=== PATIENT | female | born 1960 | race Caucasian/White ===

== ENCOUNTER 2022-04-24 07:30 | Day surgery (SDC) | payer OTHER ==
[2022-04-22 15:59] LABS: SARS-CoV-2 Antigen Rapid Res Negative (Negative)
--- NOTE | 2022-04-22 16:17 | RAD REPORT ---
EXAM DESCRIPTION: Polina Loza And Emilia (2 Views)04/22/2022 3:16 pm CLINICAL HISTORY: Preop for mass removal from COMPARISON: None FINDINGS: The lungs appear clear of acute infiltrate. The heart is normal size. Neurostimulator dev ice in place IMPRESSION: No acute abnormalities displayed
--- NOTE | 2022-04-23 15:40 | EKG ---
Test Date: 2022-04-22 Test Time: 15:00:53 Bus Starter: MEASUREMENT RESULTS: Intervals: Rate: 71 CT: 118 QRSD: 118 QT: 424 QTc: 460 [place]: P: 33 CT: 118 QRS: 63 T: 66 INTERPRETIVE STATEMENTS: Normal sinus rhythm Incomplete right bundle branch block Borderline ECG No previous ECG available for comparison Electronically Signed On 04-23-22 15:38:39 CDT by Terry Velásquez
[2022-04-24] MEDS ORDERED: NA CHLORIDE 0.9% 50 ML ONE (07:55)
[2022-04-24] MEDS ORDERED: CEFAZOLIN SODIUM 1 GM/VIAL ONE (07:55)
[2022-04-24] MEDS ORDERED: Ringers Lactate 1,000 ML IV ONE (07:56)
[2022-04-24] MEDS ORDERED: LIDOCAINE 1% MPF 5 ML VIAL ONE (09:11)
[2022-04-24] MEDS ORDERED: FENTANYL CITR 100 MCG/2 ML ONE ×2 (09:11→09:58)
[2022-04-24] MEDS ORDERED: MIDAZOLAM HCL 2 MG/2 ML INJ ONE (09:11)
[2022-04-24] MEDS ORDERED: dexAMETHasone 10 MG/ML VIAL ONE (09:11)
[2022-04-24] MEDS ORDERED: propofoL 200 MG/20 ML VIAL IV ONE (09:11)
[2022-04-24] MEDS ORDERED: ONDANSETRON 4 MG/2 ML VIAL ONE (09:12)
[2022-04-24] MEDS ORDERED: BUPIVACAINE 0.5% PF 10 ML VIAL SQ ONE (09:25)
[2022-04-24] MEDS ORDERED: BUPIVACAINE 0.5% PF 10 ML VIAL ONE (09:37)
[2022-04-24] MEDS ORDERED: KETOROLAC 30 MG/ML INJ ONE (10:02)
[2022-04-24] MEDS ORDERED: HYDROCODONE/APAP 7.5/325 MG TAB PO PRN (10:08)
--- NOTE | 2022-04-24 10:11 | P.OP ---
Date of Service: 04/24/22 Preop diagnosis: Back mass Postop diagnosis: Same Procedure performed: Wide excision back mass 5 x 3 cm with layered closure Surgeon: Saji Lockett MD Octave Board Assembler: None Estimated blood loss: Minimal Specimen: Back mass Findings: Likely sebaceous cyst Anesthesia:General Complications: None Drains: None Fluids and blood products: Nonapplicable Disposition: Recovery room Operative note: Patient brought to the OR and placed in the supine position. General anesthesia begun. Patient placed in the left lateral position. Patient prepped and draped in the usual sterile fashion. Marcaine 0.5% infiltrated locally for postop pain control. 15 blade used to make a 5 x 3 cm incision surrounding this cyst which appeared to be inflamed. Subcutaneous tissue divided. Entire cyst excised down through the deep subcutaneous tissue. Wound irrigated and bleeding controlled cautery. Flaps created. 2-0 chromic used to reapproximate subcutaneous tissue. 4-0 nylon used to close skin. Sterile dressing applied. Patient awakened taken to recovery room in good general condition. CC: Dr. Rios's office
[2022-04-24] MEDS: MEPERIDINE HCL 25 MG/ML SYR ONE ×2 (10:37→10:42)
[2022-04-24] MEDS ORDERED: HYDROCODONE/APAP 7.5/325 MG TAB ONE (11:31)
[2022-04-24 11:42] VITALS: BP 97/68; TEMP 96.9; O2SAT 98
== END 2022-04-24 11:39 | disposition home or self-care (01) ==
LOC: EDSEX 07:30 → OR 07:30
PROVIDERS: ATTEND Surgery
PROC: 0JB70ZZ Excision of Back Subcutaneous Tissue and Fascia, Open Approach (ICD-10-PCS; principal; 2022-04-24 09:00)
DX: L72.0 Epidermal cyst (principal); Z20.822 Contact with and (suspected) exposure to COVID-19
CPT/HCPCS: 93005; 36415; 88304; 71046; 87811; 11404; J2704; J2001; J2250; J3010 ×2; J1100; J2175; J7120; J2405; J0690

== ENCOUNTER 2024-06-23 08:58 | Day surgery (SDC) | payer OTHER ==
[2024-06-23 09:01] LABS: Absolute Basophils 0.2 K/uL (0-0.5); Absolute Eosinophils 0.5 K/uL (0-0.5); Absolute Lymphocytes (CBC) 2.1 K/uL (0.7-4.9); Absolute Monocytes 1.2 K/uL (0.1-1.3); Absolute Neutrophil 6.2 K/uL (1.8-8.0); Basophils % 2.4 % (0-1.3); Eosinophils % 5.3 % (0-4.4); Hematocrit 37.5 % (36.0-45.0); Hemoglobin 12.1 g/dL (12.0-15.0); Lymphocytes % 20.6 % (15.3-44.8); MCH 26.2 pg (27.0-35.0); MCHC 32.3 g/dL (32.0-36.0); MCV 81.3 fL (80-100); MPV 8.5 fL (7.6-11.3); Monocytes % 11.5 % (3.3-12.3); Neutrophils % 60.2 % (41.7-73.7); Platelets 716 thou/uL (152-406); RBC Red Blood Cell Count 4.61 M/uL (3.86-4.86); Red Cell Distribution Width 18.2 % (12.1-15.2)
[2024-06-23 09:13] LABS: Anion Gap 7.5 mEq/L (5.0-15.0); Potassium 4.5 mEq/L (3.5-5.1)
--- NOTE | 2024-06-23 09:18 | RAD REPORT ---
Procedure: Chest Pa And Lat (2 Views) HISTORY: Preop for back mass excision surgery COMPARISON: 2021 FINDINGS: The lungs appear clear of acute infiltrate. Lungs are mildly to moderately hyperaerated. Pain pump in place. No significant pleural effusion noted. The heart is normal size. IMPRESSION: No acute abnormality is displayed.
[2024-06-23] MEDS: Ringers Lactate 1,000 ML IV ONE (09:20)
[2024-06-23] MEDS ORDERED: ONDANSETRON 4 MG/2 ML VIAL ONE (11:32)
[2024-06-23] MEDS ORDERED: MIDAZOLAM HCL 2 MG/2 ML INJ ONE (11:32)
[2024-06-23] MEDS ORDERED: LIDOCAINE 2% MPF 5 ML VIAL ONE (11:32)
[2024-06-23] MEDS ORDERED: propofoL 200 MG/20 ML VIAL IV ONE (11:32)
[2024-06-23] MEDS ORDERED: FENTANYL CITR 100 MCG/2 ML ONE ×2 (11:33→12:58)
[2024-06-23] MEDS ORDERED: BUPIVACAINE 0.5% PF 10 ML VIAL ONE (11:36)
[2024-06-23] MEDS ORDERED: dexAMETHasone 10 MG/ML VIAL ONE (12:40)
[2024-06-23] MEDS ORDERED: GLYCOPYRROLATE 0.2 MG/ML SYR ONE (12:48)
[2024-06-23] MEDS ORDERED: EPHEDRINE SULF 50 MG/ML VIAL ONE (12:50)
[2024-06-23] MEDS ORDERED: CEFAZOLIN SODIUM 1 GM/VIAL ONE (12:51)
--- NOTE | 2024-06-23 13:20 | P.BOP ---
Preoperative diagnosis: tender infected back subQ mass 4x3cm Postoperative diagnosis: same Primary procedure: Excsional biopsy of tender infected back subQ mass 4x3cm Estimated blood loss: <10cc Specimen: mass Findings: mass Anesthesia: General Complications: None Transferred to: Recovery Room Condition: Good
[2024-06-23] MEDS: HYDROMORPHONE HCL 1 MG/ML INJ ONE (13:41)
[2024-06-23] MEDS ORDERED: HYDROCODONE/APAP 7.5/325 MG TAB ONE (14:05)
[2024-06-23] MEDS: HYDROCODONE/APAP 7.5/325 MG TAB PO ONE (14:08)
[2024-06-23 14:29] VITALS: BP 102/84; TEMP 98.1; O2SAT 99
--- NOTE | 2024-06-23 23:58 | OP ---
Date of Procedure: 06/23/2024 Surgeon: Rogelio Blum MD Preoperative Diagnosis: Tender infected back subcutaneous mass, 4 x 3 cm. Postoperative Diagnosis: Tender infected back subcutaneous mass, 4 x 3 cm. Procedure: Excisional biopsy of tender infected back subcutaneous mass, 4 x 3 cm. Anesthesia: General plus local. Estimated Blood Loss: Less than 10 cc. Specimens: Mass and culture. Findings: Mass. There is still a cyst present in that area. We cultured that region since it was i nfected before. We did not see any surendra pus at this moment. We irrigated the area profusely since the patient preferred to have this closed and dressing changes. Understanding that in the next few d ays if we do not see clinically any improvement, we might have to leave the area to close by secondar y intention and do wet-to-dry dressing. Anesthesia: General plus local. Indications: This is a case of a 64-year-old patient who comes with an infected upper back subcutane ous mass. She has been on antibiotics for a few days already. She has improved erythema, so she wan ts that excised now and the mass is still present. The benefits, alternatives, and risks of excision were fully explained, which include, but not limited to, infection, bleeding, damage to adjacent str uctures, anesthesia complication, recurrence, RI, and even . She also understands this may not relieve any symptoms. She might need more than one surgical intervention and she may require wound c are. She signed a consent. Procedure In Detail: The area of concern was marked by me and the patient in the holding room. The patient was brought to the operating room, placed in supine position. Anesthesia was done without co mplication. Upper back was prepped and draped in usual sterile fashion after the patient was placed in lateral decubitus position. After that, time-out was called. Local anesthesia was applied, follo wed by wedge incision of the skin all the way down to deep subcutaneous tissue, almost near fascia of the muscle. The mass was excised, cultured. Area was irrigated. We did not see any surendra pus at t his moment although was infected recently. At that moment, I proceeded then to close the subcutaneou s tissue with 3-0 chromic and then the skin with 3-0 nylon. Sponge count and instrument counts were correct. The patient tolerated the procedure well. The patient was sent to recovery in stable condi tion. GRACIELA/MARIA LUISA Voice ID: [id number] Report ID: [id number]
--- NOTE | 2024-06-23 23:58 | DS ---
Date of Discharge: 06/23/2024 Diagnosis: Tender infected back subcutaneous mass. Procedure: Excisional biopsy of tender infected back subcutaneous mass. Disposition: Home. Activity: As tolerated. No heavy lifting. Discharge Instructions: Follow up in my office in 1 week. Call for appointment, [phone]. Keep are a dry for 48 hours, then clean with soap and water. Apply some triple antibiotics. Continue on p.o. antibiotics. GRACIELA/MARIA LUISA Voice ID: [id number] Report ID: [id number]
== END 2024-06-23 14:20 | disposition home or self-care (01) ==
LOC: OR 08:58
PROVIDERS: ATTEND Surgery
PROC: 0JB70ZZ Excision of Back Subcutaneous Tissue and Fascia, Open Approach (ICD-10-PCS; principal; 2024-06-23 11:45)
DX: L72.0 Epidermal cyst (principal); L08.9 Local infection of the skin and subcutaneous tissue, unspecified
CPT/HCPCS: 93005; 87070; 85025; 80048; 36415; 87205; 88304; 87075; 71046; 11404; J2704; J2003; J2250; J3010 ×2; J1100; J1171; J2405; J7120; J0690